=== PATIENT | female | born 1935 | race Two or more races ===

== ENCOUNTER 2017-11-07 18:44 | Emergency (ER) | payer OTHER ==
[~2017-11-07] VITALS: Ht 172.7 cm; Wt 88.5 kg
[~2017-11-07 18:44] MED LIST: AVAPRO150 MG PO; CARDIZEM60 MG; CARVEDILOL3.125 MG; CARVEDILOL3.125 MG PO; CIPRO500 MG PO; CLOPIDOGREL BIS75 MG PO; COREG CR10 MG; DIGITEK125 MCG; DOLOGEN CAPLET1 EACH PO; FLOVENT 110MCG7.9 GM IH; ISORDIL10 MG PO; JANTOVEN4 MG; LANOXIN125 MCG PO; LASIX20 MG PO; LEVOTHYROXINE100 MCG PO; LIPITOR20 MG PO; MECLIZINE HCL25 MG PO; OSEL75CA PO; PEPCID20 MG; PLAVIX75 MG PO; PRAVASTATIN SOD40 MG; SYNTHROID75 MCG; XOPENEX0.63 MG/3 IH; ZOCOR5 MG PO; ZYNCOF 20-400120 ML PO
== END 2017-11-09 13:55 | disposition home or self-care (01) ==
LOC: ER 18:44
DX: I48.91 Unspecified atrial fibrillation (principal); E86.0 Dehydration; R42 Dizziness and giddiness; R53.1 Weakness; R06.09 Other forms of dyspnea; I25.10 Atherosclerotic heart disease of native coronary artery without angina pectoris; I10 Essential (primary) hypertension; R41.0 Disorientation, unspecified; R53.81 Other malaise; J44.1 Chronic obstructive pulmonary disease with (acute) exacerbation; R09.02 Hypoxemia; R41.82 Altered mental status, unspecified; Z99.81 Dependence on supplemental oxygen